=== PATIENT | male | born 1955 | race Caucasian/White ===

== ENCOUNTER 2017-07-21 08:49 | Emergency (ER) | payer OTHER ==
[~2017-07-21] VITALS: Ht 180.3 cm; Wt 70.3 kg
[2017-07-21 08:52] VITALS: BP_SYST 158
[2017-07-21 09:44] LABS: HEMATOCRIT 44.7 % (36-54); HEMOGLOBIN 15.1 g/dL (14.0-18.0); MEAN CORPUSCULAR HEMOGLOBIN 31 pg (27-31); MEAN CORPUSCULAR HGB CONC 34 % (32-36); MEAN CORPUSCULAR VOLUME 92 fL (79.0-98.0); PLATELET COUNT (AUTO) 315 K/uL (130-430); RED BLOOD CELL COUNT(AUTO) 4.89 MIL/uL (4.2-6.2); RED CELL DISTRIBUTION WIDTH 12.1 % (9.0-15.0); WHITE BLOOD COUNT (AUTO) 17.7 K/uL (4.8-10.8)
[2017-07-21 09:49] LABS: POTASSIUM 3.9 mmol/L (3.5-5.1)
[2017-07-21 09:50] LABS: CALCIUM 9.6 mg/dL (8.4-11.0); CREATININE 1.1 mg/dL (0.55-1.30)
[2017-07-21] MEDS: KETOROLAC TROMETHAMINE 30 MG VIAL IVP ONE (09:50)
[2017-07-21] MEDS: NACL 0.9% 1,000 ML IV ONE (09:51)
[2017-07-21 09:54] LABS: ALBUMIN 3.9 g/dL (3.4-4.8); TOTAL BILIRUBIN 0.7 mg/dL (0.0-1.0)
[2017-07-21 10:14] LABS: ATYPICAL LYMPHOCYTES % 0 % (0-0); BAND % (MANUAL) 3 % (0-6); BASOPHILS % (MANUAL) 0 % (0-2); EOSINOPHILS % (MANUAL) 0 % (0-7); LYMPHOCYTES % (MANUAL) 6 % (20-46); MONOCYTES % (MANUAL) 2 % (0-11)
[2017-07-21 10:44] VITALS: BP_SYST 126
== END 2017-07-21 10:44 | disposition home or self-care (01) ==
LOC: SED 08:49
DX: N23 Unspecified renal colic (principal)
CPT/HCPCS: 36415; 74176; 80053; 85007; 85027; 96361; 96374; 99285; J1885; J7030